=== PATIENT | male | born 1950 | race African-American/Black ===

== ENCOUNTER 2020-04-04 20:44 | Emergency (ER) | payer MEDICARE, OTHER ==
[~2020-04-04] VITALS: Ht 177.8 cm; Wt 92.5 kg
[2020-04-04] MEDS ORDERED: OMEPRAZOLE20 M1 PO (21:59)
[2020-04-04] MEDS ORDERED: THORAZINE25 MG PO (21:59)
[2020-04-04 22:10] VITALS: BP 129/80
== END 2020-04-04 22:10 | disposition home or self-care (01) ==
LOC: FSED 21:08
DX: R06.6 Hiccough (principal); R94.31 Abnormal electrocardiogram [ECG] [EKG]; I10 Essential (primary) hypertension; E11.9 Type 2 diabetes mellitus without complications
CPT/HCPCS: 71046; 80053; 81003; 82553; 83880; 84484; 85025; 93005; 99283

== ENCOUNTER 2023-12-09 11:42 | Emergency (ER) | payer MEDICARE ==
[~2023-12-09] VITALS: Ht 177.8 cm; Wt 92.5 kg
[~2023-12-09 11:42] MED LIST: AZITHROMYCIN250 MG PO; BETAMETHASONE V TOP; CLEOCIN40 GM TOP; DILTIAZEM HCL90 MG PO; ESOMEPRAZOLE MA40 MG PO; FIBER LAXATIVE500 MG PO; LANTUS 3ML100 UNITS/ SC; LATANOPROST2.5 ML OU; LEVOFLOXACIN500 MG PO; LOSARTAN POTAS100 MG PO; METOCLOPRAMIDE10 MG PO; NIFEDIPINE ER60 M1 PO; OMEPRAZOLE20 M1 PO; TENOFOVIR DISO300 MG PO; THORAZINE25 MG PO; TRETINOIN TOP; TRULICITY0.75 MG/0. SC; VENTOLIN HFA18 GM INH; VITAMIN D350 MC1 PO
[2023-12-09 12:16] VITALS: PULSE 67; RESP 18; TEMP 97.2; O2SAT 100
[2023-12-09] MEDS ORDERED: SODIUM CHLORIDE FLUSH 10 ML SYR IV PRN (12:30)
[2023-12-09 14:04] LABS: BASOPHILS % 0.3 % (0.0-1.0); EOSINOPHILS # (AUTO) 0.1 (0.0-0.4); EOSINOPHILS % 2.1 % (0.0-6.0); HEMATOCRIT 44.5 % (38.2-49.6); HEMOGLOBIN 13.9 g/dL (14.0-18.0); LYMPHOCYTES # (AUTO) 1.4 (1.0-3.2); LYMPHOCYTES % 21.4 % (18.0-39.1); MEAN CORPUSCULAR HEMOGLOBIN 29.2 pg (28-32); MEAN CORPUSCULAR HGB CONC 31.2 g/dL (31-35); MEAN CORPUSCULAR VOLUME 93.5 fL (81-99); MONOCYTES # (AUTO) 0.5 (0.2-0.8); NEUTROPHILS # (AUTO) 4.7 (2.1-6.9); NEUTROPHILS % 69.1 % (38.7-80.0); PLATELET COUNT 215 x10e3/uL (140-360); RED BLOOD COUNT 4.76 x10e6/uL (4.3-5.7); RED CELL DISTRIBUTION WIDTH 16.9 % (11.7-14.4); WHITE BLOOD COUNT 6.74 x10e3/uL (4.8-10.8)
[2023-12-09 14:22] LABS: ALBUMIN 3.8 g/dL (3.5-5.0); ALBUMIN/GLOBULIN RATIO 0.9 (0.8-2.0); ANION GAP 12.1 mmol/L (8-16); BILIRUBIN,TOTAL 0.5 mg/dL (0.2-1.2); CALCIUM 9.8 mg/dL (8.4-10.2); CREATININE, SERUM 2.16 mg/dL (0.72-1.25); POTASSIUM 4.1 mmol/L (3.5-5.1); TOTAL PROTEIN 7.9 g/dL (6.5-8.1)
[2023-12-09 14:28] LABS: TROPONIN I 0.008 ng/mL (0-0.300)
== END 2023-12-09 16:08 | disposition home or self-care (01) ==
LOC: ER 12:20
DX: R42 Dizziness and giddiness (principal); M25.551 Pain in right hip; W10.8XXA Fall (on) (from) other stairs and steps, initial encounter; Y93.01 Activity, walking, marching and hiking; Y92.89 Other specified places as the place of occurrence of the external cause; I10 Essential (primary) hypertension; E11.9 Type 2 diabetes mellitus without complications; K76.9 Liver disease, unspecified; K21.9 Gastro-esophageal reflux disease without esophagitis; Z85.46 Personal history of malignant neoplasm of prostate
CPT/HCPCS: 36415; 71045; 80053; 83880; 84484; 85025; 93005; 99284

== ENCOUNTER 2024-03-31 07:26 | Emergency (ER) | payer MEDICARE ==
[~2024-03-31] VITALS: Ht 177.8 cm; Wt 96.2 kg
[2024-03-31 07:34] VITALS: TEMP 97.8
[2024-03-31 08:28] LABS: BASOPHILS % 0.6 % (0.0-1.0); EOSINOPHILS # (AUTO) 0.2 (0.0-0.4); EOSINOPHILS % 3.4 % (0.0-6.0); HEMATOCRIT 48.4 % (38.2-49.6); HEMOGLOBIN 14.5 g/dL (14.0-18.0); LYMPHOCYTES # (AUTO) 1.7 (1.0-3.2); LYMPHOCYTES % 25.9 % (18.0-39.1); MEAN CORPUSCULAR HEMOGLOBIN 29.2 pg (28-32); MEAN CORPUSCULAR VOLUME 97.4 fL (81-99); MONOCYTES # (AUTO) 0.6 (0.2-0.8); MONOCYTES % 8.7 % (4.4-11.3); NEUTROPHILS # (AUTO) 3.9 (2.1-6.9); NEUTROPHILS % 61.1 % (38.7-80.0); PLATELET COUNT 275 x10e3/uL (140-360); RED BLOOD COUNT 4.97 x10e6/uL (4.3-5.7); WHITE BLOOD COUNT 6.45 x10e3/uL (4.8-10.8)
[2024-03-31] MEDS: ACETAMINOPHEN 325 MG TAB PO ONE (08:35)
[2024-03-31] MEDS: Morphine 2mg Syringe 2 MG/ML SYR IV ONE (08:39)
[2024-03-31 08:45] LABS: BACTERIA,URINE FEW /HPF; RBC,URINE 0-5 /HPF (0-5)
[2024-03-31 08:46] LABS: BILIRUBIN,URINE NEGATIVE (NEGATIVE); CLARITY,URINE SL CLOUDY (CLEAR); COLOR,URINE YELLOW (YELLOW); EPITHELIAL CELLS,URINE FEW /LPF; GLUCOSE, URINE 500 (NEGATIVE); KETONES,URINE TRACE (NEGATIVE); LEUKOCYTE ESTERASE ,URINE NEGATIVE (NEGATIVE); NITRITE,URINE NEGATIVE (NEGATIVE); PH,URINE 5.5 (5 - 7); PROTEIN,URINE DIPSTICK NEGATIVE (NEGATIVE); URINE UROBILINOGEN 0.2 mg/dL (0.2 - 1)
[2024-03-31 09:00] LABS: ALBUMIN 3.7 g/dL (3.5-5.0); ALBUMIN/GLOBULIN RATIO 0.8 (0.8-2.0); ANION GAP 15.2 mmol/L (8-16); BILIRUBIN,TOTAL 0.5 mg/dL (0.2-1.2); CALCIUM 9.7 mg/dL (8.4-10.2); CREATININE, SERUM 2.03 mg/dL (0.72-1.25); POTASSIUM 4.2 mmol/L (3.5-5.1); TOTAL PROTEIN 8.3 g/dL (6.5-8.1)
[2024-03-31 10:07] VITALS: PULSE 76; RESP 18; O2SAT 99
[2024-03-31] MEDS ORDERED: Magic Mouthwash (11:00)
== END 2024-03-31 11:13 | disposition home or self-care (01) ==
LOC: ER 07:32
DX: R35.0 Frequency of micturition (principal); R10.2 Pelvic and perineal pain; I12.9 Hypertensive chronic kidney disease with stage 1 through stage 4 chronic kidney disease, or unspecified chronic kidney disease; E11.22 Type 2 diabetes mellitus with diabetic chronic kidney disease; E11.65 Type 2 diabetes mellitus with hyperglycemia; N18.9 Chronic kidney disease, unspecified; K76.9 Liver disease, unspecified; K21.9 Gastro-esophageal reflux disease without esophagitis; Z85.46 Personal history of malignant neoplasm of prostate
CPT/HCPCS: 36415; 74176; 80053; 81001; 83690; 85025; 87086; 99284; J2270

== ENCOUNTER 2024-04-05 10:51 | Emergency (ER) | payer MEDICARE ==
[~2024-04-05] VITALS: Ht 177.8 cm; Wt 96.2 kg
[~2024-04-05 10:51] MED LIST changes: +Magic Mouthwash
[2024-04-05 10:52] VITALS: PULSE 59; RESP 18; TEMP 97.5
[2024-04-05] MEDS ORDERED: NAPROXEN250 MG PO (11:56)
[2024-04-05 12:33] VITALS: BP 132/68; PULSE 71; RESP 18; TEMP 98.3; O2SAT 98
== END 2024-04-05 12:10 | disposition home or self-care (01) ==
LOC: ER 11:03
DX: S93.491A Sprain of other ligament of right ankle, initial encounter (principal); X50.1XXA Overexertion from prolonged static or awkward postures, initial encounter; Y93.01 Activity, walking, marching and hiking; Y92.89 Other specified places as the place of occurrence of the external cause; I12.9 Hypertensive chronic kidney disease with stage 1 through stage 4 chronic kidney disease, or unspecified chronic kidney disease; E11.22 Type 2 diabetes mellitus with diabetic chronic kidney disease; N18.9 Chronic kidney disease, unspecified; K21.9 Gastro-esophageal reflux disease without esophagitis; Z85.46 Personal history of malignant neoplasm of prostate
CPT/HCPCS: 99283

== ENCOUNTER 2024-09-08 20:31 | Emergency (ER) | payer MEDICARE ==
[~2024-09-08] VITALS: Ht 177.8 cm; Wt 94.8 kg
[~2024-09-08 20:31] MED LIST changes: +NAPROXEN250 MG PO
[2024-09-08 20:38] VITALS: PULSE 54; RESP 20; TEMP 98.5
[2024-09-08 20:57] VITALS: BP 195/95; O2SAT 100
== END 2024-09-08 21:05 | disposition home or self-care (01) ==
LOC: ER 21:02
DX: M26.602 Left temporomandibular joint disorder, unspecified (principal); R51.9 Headache, unspecified; I10 Essential (primary) hypertension; E11.9 Type 2 diabetes mellitus without complications; K21.9 Gastro-esophageal reflux disease without esophagitis; N18.9 Chronic kidney disease, unspecified; B19.10 Unspecified viral hepatitis B without hepatic coma; Z85.46 Personal history of malignant neoplasm of prostate; Z11.52 Encounter for screening for COVID-19
CPT/HCPCS: 99282

== ENCOUNTER 2024-11-26 21:08 | Emergency (ER) | payer MEDICARE ==
[~2024-11-26] VITALS: Ht 177.8 cm; Wt 92.5 kg
[2024-11-26 22:10] VITALS: TEMP 98.4
[2024-11-26 22:42] LABS: BASOPHILS % 0.3 % (0.0-1.0); EOSINOPHILS % 2.2 % (0.0-6.0); LYMPHOCYTES % 15.7 % (18.0-39.1); MONOCYTES % 7.9 % (4.4-11.3); NEUTROPHILS % 73.6 % (38.7-80.0); RED CELL DISTRIBUTION WIDTH 16.5 % (11.7-14.4)
[2024-11-26] MEDS: KETOROLAC TROMETHAMINE 30 MG/ML VIAL IV STA (22:49)
[2024-11-26 23:03] LABS: EST GLOMERULAR FILTRATION RATE 34.0 ML/MIN (>=60)
[2024-11-26] MEDS ORDERED: IOPAMIDOL 370 MG/ML 100 ML INFUS..BTL INJ ONE (23:27)
[2024-11-27 00:19] VITALS: PULSE 54; RESP 19
[2024-11-27] MEDS ORDERED: CYCLOBENZAPRINE5 MG PO (00:47)
[2024-11-27 01:03] VITALS: BP 173/88; PULSE 58; RESP 16; TEMP 97.9; O2SAT 98
== END 2024-11-27 01:04 | disposition home or self-care (01) ==
LOC: ER 21:39
DX: R20.2 Paresthesia of skin (principal); I31.39 Other pericardial effusion (noninflammatory); M54.12 Radiculopathy, cervical region; I12.9 Hypertensive chronic kidney disease with stage 1 through stage 4 chronic kidney disease, or unspecified chronic kidney disease; E11.22 Type 2 diabetes mellitus with diabetic chronic kidney disease; E11.65 Type 2 diabetes mellitus with hyperglycemia; N18.9 Chronic kidney disease, unspecified; K76.9 Liver disease, unspecified; K21.9 Gastro-esophageal reflux disease without esophagitis; R94.31 Abnormal electrocardiogram [ECG] [EKG]; Z85.46 Personal history of malignant neoplasm of prostate
CPT/HCPCS: 36415; 71260; 72125; 80053; 82550; 83690; 83880; 84484; 85025; 93005; 99284; J1885; Q9967